=== PATIENT | female | born 1970 | race Caucasian/White ===

== ENCOUNTER 2021-01-28 14:21 | Outpatient (REF) | payer BC, SELFPAY ==
--- NOTE | ~2021-01-28 | MM_ITS ---
EXAMINATION: MM SCREENING DIGITAL BREAST TOMOSYNTHESIS, BILATERAL CLINICAL INFORMATION: Screening. Asymptomatic. The lifetime risk of breast cancer based on the Tyrer-Cuzick Model is 14%. COMPARISON: Mammography: 05/23/2019, 04/28/2018, 04/16/2017 TECHNIQUE: Digital breast tomosynthesis is performed in both the craniocaudal and mediolateral oblique views along with computer-aided detection (CAD). Synthesized 2D images are generated from the tomosynthesis. FINDINGS: There are scattered areas of fibroglandular density (ACR BI-RADS breast composition Category b). There are no significant masses, abnormal calcifications, or other abnormalities. Breast tissue composition borders on predominantly fatty. Background stromal markings are stable. No significant changes. MM/MM tomosynthesis screening BI IMPRESSION: No mammographic evidence of malignancy. ASSESSMENT: BI-RADS 1: Negative RECOMMENDATION: Routine annual mammography screening. This patient's information was entered into a reminder system with a target due date for their next mammogram.
== END 2021-01-28 14:22 | disposition home or self-care (01) ==
LOC: HO.MAMMO 14:21
PROVIDERS: PCP Internal Medicine; Visit Provider Internal Medicine
DX: Z12.31 Encounter for screening mammogram for malignant neoplasm of breast (principal)
CPT/HCPCS: 77063; 77067

== ENCOUNTER 2021-01-30 06:35 | Outpatient (REF) | payer BC, SELFPAY ==
[2021-01-30 11:07] LABS: MANUAL DIFF FLAG NO
[2021-01-30 11:22] LABS: Basophils Absolute Auto 0.1 X10*3/uL (0.0-0.2); Basophils Percent Auto 0.8 % (0-2); Eosinophils Absolute Auto 0.2 X10*3/uL (0.0-0.4); Eosinophils Percent Auto 3.1 % (0-4); Hemoglobin 14.6 g/dl (12.0-16.0); Imm Gran Abs Auto 0.02 X10*3/uL (0.00-0.03); Imm Gran Pct Auto 0.3 % (0.0-0.4); Lymphocytes Absolute Auto 2.2 X10*3/uL (1.2-4.9); Lymphocytes Percent Auto 34.3 % (20-40); Mean Corpuscular HGB Conc 31.1 g/dl (31.0-35.0); Mean Corpuscular Hemoglobin 27.9 pg (27.0-33.0); Mean Corpuscular Volume 89.7 fL (80-98); Monocytes Absolute Auto 0.5 X10*3/uL (0.1-1.2); Monocytes Percent Auto 7.1 % (2-11); Neutrophils Absolute Auto 3.6 X10*3/uL (2.0-8.3); Neutrophils Percent Auto 54.4 % (45-73); Platelet Count 269 X10*3/uL (160-400); Red Blood Count 5.24 X10*6/uL (4.20-5.50); White Blood Count 6.5 X10*3/uL (4.8-10.8)
[2021-01-30 11:28] LABS: Glucose Urine UA NEG (NEG); Leukocyte Esterase Urine NEG (NEG); Nitrite Urine NEG (NEG); Urine Blood NEG (NEG); Urine Ketones NEG (NEG); Urine Protein NEG (NEG-TRACE)
[2021-01-30 11:37] LABS: Appearance Urine CLEAR; Color Urine YELLOW
[2021-01-30 11:42] LABS: Estimated Average Glucose 111 mg/dL; Hemoglobin A1c % 5.5 %
[2021-01-30 11:55] LABS: Alanine Aminotransferase 13 U/L (0-31); Albumin Level 4.1 g/dL (3.5-5.0); Alkaline Phosphatase 117 U/L (39-117); Anion Gap 13 (12-20); Aspartate Amino Transferase 13 U/L (5-31); Bilirubin Total 0.6 mg/dL (0.0-1.0); Blood Urea Nitrogen 14 mg/dL (9-16); Calcium 8.5 mg/dL (8.4-10.2); Carbon Dioxide 31 mmol/L (22-29); Chloride 105 mmol/L (96-108); Cholesterol 186 mg/dL; Estimated Glomerular Filt Rate > 60; Glucose Random 96 mg/dL (60-115); HDL Cholesterol 54 mg/dL; LDL Cholesterol Calculated 116 mg/dl; Potassium 4.6 mmol/L (3.3-5.1); Sodium 144 mmol/L (135-145); Total Protein 6.4 g/dL (6.5-8.0); Triglycerides 80 mg/dL
[2021-01-30 11:57] LABS: RBC Urine 0 /HPF (0); Squamous Epithelial Cell Urine TRACE /LPF; WBC Urine 0 /HPF (0-4)
[2021-01-30 12:17] LABS: Thyroid Stimulating Hormone 1.77 uIU/mL (0.32-4.0); Vitamin D 25-OH Total 29.8 ng/mL (>30)
[2021-01-30 12:32] LABS: Vitamin B12 724 pg/mL (200-900)
== END 2021-01-30 06:36 | disposition home or self-care (01) ==
LOC: HO.HMGCLDS 06:35
PROVIDERS: PCP Internal Medicine; Visit Provider Internal Medicine
DX: E66.9 Obesity, unspecified (principal); E78.00 Pure hypercholesterolemia, unspecified; M19.90 Unspecified osteoarthritis, unspecified site
CPT/HCPCS: 36415; 80053; 80061; 81001; 82306; 82607; 82746; 83036; 84439; 84443; 85025

== ENCOUNTER 2022-01-29 14:47 | Outpatient (REF) | payer BC, SELFPAY ==
--- NOTE | ~2022-01-29 | MM_ITS ---
EXAMINATION: MM SCREENING DIGITAL BREAST TOMOSYNTHESIS, BILATERAL CLINICAL INFORMATION: Screening. Asymptomatic. The lifetime risk of breast cancer based on the Tyrer-Cuzick Model is 13%. COMPARISON: Mammography: 01/28/2021, 05/23/2019, 04/28/2018 TECHNIQUE: Digital breast tomosynthesis is performed in both the craniocaudal and mediolateral oblique views along with computer-aided detection (CAD). Synthesized 2D images are generated from the tomosynthesis. FINDINGS: The breasts are almost entirely fatty (ACR BI-RADS breast composition Category a). There are no significant masses, abnormal calcifications, or other abnormalities. Background stromal and fibroglandular densities are stable. Skin contours are smooth. No significant changes. MM/MM tomosynthesis screening BI IMPRESSION: No mammographic evidence of malignancy. ASSESSMENT: BI-RADS 1: Negative RECOMMENDATION: Routine annual mammography screening. This patient's information was entered into a reminder system with a target due date for their next mammogram.
== END 2022-01-29 14:48 | disposition home or self-care (01) ==
LOC: HO.MAMMO 14:47
PROVIDERS: PCP Internal Medicine; Visit Provider Internal Medicine
DX: Z12.31 Encounter for screening mammogram for malignant neoplasm of breast (principal)
CPT/HCPCS: 77063; 77067

== ENCOUNTER 2023-02-04 15:05 | Outpatient (REF) | payer BC, SELFPAY ==
--- NOTE | ~2023-02-04 | MM_ITS ---
EXAMINATION: MM SCREENING DIGITAL BREAST TOMOSYNTHESIS, BILATERAL CLINICAL INFORMATION: Screening. Asymptomatic. The lifetime risk of breast cancer based on the Tyrer-Cuzick Model is 9.4%. COMPARISON: Mammography: January 29, 2022 and studies dating back to April 10, 2016 TECHNIQUE: Digital breast tomosynthesis is performed in both the craniocaudal and mediolateral oblique views along with computer-aided detection (CAD). Synthesized 2D images are generated from the tomosynthesis. FINDINGS: The breasts are almost entirely fatty (ACR BI-RADS breast composition Category a). There are no significant masses, abnormal calcifications, or other abnormalities. MM/MM tomosynthesis screening BI IMPRESSION: No significant changes ASSESSMENT: BI-RADS 1: Negative RECOMMENDATION: Routine annual mammography screening. This patient's information was entered into a reminder system with a target due date for their next mammogram.
== END 2023-02-04 15:06 | disposition home or self-care (01) ==
LOC: HO.MAMMO 15:05
PROVIDERS: PCP Internal Medicine; Visit Provider Internal Medicine
DX: Z12.31 Encounter for screening mammogram for malignant neoplasm of breast (principal)
CPT/HCPCS: 77063; 77067

== ENCOUNTER 2023-11-16 14:51 | Outpatient (AMB) | payer BC, SELFPAY ==
[2023-11-16 14:52] VITALS: BP 120/76; PULSE 69; O2SAT 99; BMI 34.0
--- NOTE | 2023-11-16 14:52 | A.OFFPC_ITS ---
Vital Signs 11/16/23 14:52 Height 5 ft 2.8 in Weight 191 lb BMI 34.0 BP 120/76 Blood Pressure Location Lt brachial Position Sitting Pulse 69 Pulse Source Pulse Oximeter Pulse Oximetry (%) 99 Oxygen Delivery Method Room Air Intake Visit Reasons: Physical Exam Quartz Miner Required: No Allergies naproxen [NAPROXEN] Allergy (Intermediate, Verified 11/16/23 14:52) GI UPSET, upset stomach, vomiting Medication List - Last Reconciled 11/16/23 by Noemy Arellano MD bupropion HCl 150 mg PO DAILY calcium carbonate-vitamin D3 600 mg-5 mcg (200 unit) caps PO clonazepam (Klonopin) 1 mg PO DAILY clonidine HCl 0.1 mg PO DAILY docusate sodium 100 mg PO DAILY PRN meloxicam 15 mg PO DAILY Tobacco use date assessed: 11/16/23 Dental Screening Dental Screen Date: 11/16/23 Did you have a dental visit in the last 12 months?: Yes Did you have a dental problem in the last 6 months where you did not have access to dental care?: No Was dental information given to patient?: Patient has dentist HPI Physical Exam HPI Details 53-year-old obese female with generalize d anxiety disorder GERD last seen in December 2020 coming in for physical exam. Patient's mammogram is up-to-date colonoscopy is up-to-date 2018 10 years. Review of the notes October 2023 follows up with Rheumatology for osteoarthritis of the hand the knee. has a hx of migraine and wants amitriptylline. needs a letter - problem with perfume at work- walks QD 45 min. [facility] Medical History (Updated 11/16/23 @ 15:57 by Noemy Arellano MD) Vitamin D deficiency Migraine Fibromyalgia Anxiety Obesity (BMI 30-39.9) GERD (gastroesophageal reflux disease) Osteoarthritis Dysplasia of cervix, low grade (JONELLE 1) Surgical History (Updated 11/16/23 @ 15:40 by Noemy Arellano MD) History of prior ablation treatment History of herniated intervertebral disc History of ear surgery History of skin surgery H/O gastric bypass Family History (Updated 01/21/21 @ 13:42 by Cass Franklin) Father Myocardial infarction Mother No problems noted. Maternal Grandmother Breast cancer Paternal Grandfather Bone cancer Paternal Uncle Myocardial infarction Social History (Updated 11/16/23 @ 15:38 by Noemy Arellano MD) Alcohol intake: current Alcohol intake frequency: holidays/special occasions only Comment: once on holiday Patient Tobacco Use Status: Never used Tobacco Cognitive needs: No Hearing needs: No Vision needs: No Questionnaire PHQ-9 Over the last 2 weeks, how often have you been bothered by any of the following problems? 1. Little interest or pleasure in doing things: not at all 2. Feeling down, depressed, or hopeless: several days 3. Trouble falling or staying asleep, or sleeping too much: not at all 4. Feeling tired or having little energy: not at all 5. Poor appetite or overeating: not at all 6. Feeling bad about yourself - or that you are a failure or have let yourself or your family down: not at all 7. Trouble concentrating on things, such as reading the newspaper or watching television: not at all 8. Moving or speaking so slowly that other people could have noticed. Or the opposite - being so fidgety or restless that you have been moving around a lot more than usual: not at all 9. Thoughts that you would be better off or of hurting yourself in some way: not at all Total score: 1 Depression Screening Interpretation: Positive Depression Screening Follow-up: Existing condition and In treatment Depression Screening Done: Yes Source: Developed by Drs. Kenneth Singh, Diana Ward, Sam Kramer and colleagues, with an educational abi from [employer]. AUDIT C Alcohol Use Questionnaire (AUDIT-C) 1. How often do you have a drink containing alcohol?: Monthly or less 2. How many drinks containing alcohol do you have on a typical day when you are drinking?: 1 or 2 3. How often do you have six or more drinks on one occasion?: Never Total Score: 1 DIXON-7 AMB Questionnaire DIXON-7 Date DIXON - 7 assessed: 11/16/23 (pt taking RX) Feeling nervous, anxious, or on edge: 1 = Several days Not being able to stop or control worryin = Several days Worrying too much about different things: 0 = Not at all Trouble relaxin = Not at all Being so restless that it is hard to sit still: 0 = Not at all Becoming easily annoyed or irritable: 0 = Not at all Feeling afraid as if something awful might happen: 0 = Not at all Total DIXON-7 score (0-4 normal; 5-9 mild; 10-14 moderate; 15-21 severe): 2 Source: Developed by Drs. Kenneth Singh, Diana Ward, Sam Kramer and colleagues, with an educational abi from [employer]. Review of Systems Const Denies poor appetite and Denies weakness Eyes Denies no additional complaints ENT Reports Normal hearing present, Denies dizziness, Denies nasal congestion, Denies tinnitus and Denies sore throat Card Denies chest pain, Denies syncope, Denies rapid heart rate and Denies dyspnea Resp Denies cough and Denies dyspnea GI Denies change in stool character, Reports constipation, Denies diarrhea, Denies nausea and Denies vomiting Denies urinary frequency, Denies difficulty voiding and Denies dysuria Neuro Reports Normal hearing present, Denies confusion, Denies dizziness, Denies syncope and Denies weakness Psych Denies confusion Physical exam (Primary Care) Vital Signs: Last Vital Signs Pulse 69 11/16/23 14:52 BP 120/76 11/16/23 14:52 Pulse Ox 99 11/16/23 14:52 Oxygen Delivery Method Room Air 11/16/23 14:52 BMI result Body Mass Index 34.0 Tobacco/Smoking Status: Tobacco use Status Tobacco use date assessed 11/16/23 11/16/23 14:53 Patient Tobacco Use Status Never used Tobacco 11/16/23 14:53 PHQ-9: PHQ-9 Score PHQ-9: Total score 1 11/16/23 15:02 Depression Screening Interpretation: Positive Depression Screening Follow-up: Existing condition and In treatment Const General: No confusion Orientation/consciousness: No confusion HENMT Head: Yes normocephalic Ears: external ears normal and TM's normal bilaterally Face and sinus: Yes normal facial exam Mouth: moist mucous membranes Throat: Yes tonsils normal Eyes Conjunctivae: conjunctivae normal Pupils: Equal, round and reactive pupils present and Pupil accommodation reflex normal Direct Ophthalmoscopy: normal light reflex Neck Neck: No lymphadenopathy Thyroid: Thyroid normal Chest Chest palpation & inspection: normal inspection of the chest Resp Effort & Inspection: normal respiratory effort and no audible wheezes Auscultation: clear to auscultation bilaterally, no crackles, no wheezes and lung sounds not diminished Cardio Rate: regular rate Rhythm: regular rhythm Peripheral pulses: radial pulses present and dorsalis pedis present GI Palpation (GI): no masses Auscultation: normal bowel sounds and normoactive bowel sounds Rectal Exam - Female: deferred Skin General skin exam: no rashes or lesions noted Rashes: no rashes Neuro General: No confusion Cranial nerves: Yes Equal, round and reactive pupils present and Yes Normal hearing present Cognition (Neuro): normal cognition Gait exam (Neuro): Normal gait present Motor exam (neuro): 5/5 motor strength present throughout Deep tendon reflexes (DTR's): Right brachioradialis reflex intensity grade: 2+, Left brachioradialis reflex intensity grade: 2+, Right patellar reflex intensity grade: 2+ and Left patellar reflex intensity grade: 2+ Extrem General: No edema Assessment and Plan Assessment & Plan (1) Annual physical exam: Code(s): Z00.00 - Encounter for general adult medical examination without abnormal findings (2) Obesity (BMI 30-39.9): Code(s): E66.9 - Obesity, unspecified Plan: Diet and exercise noted weight loss (3) GERD (gastroesophageal reflux disease): Code(s): K21.9 - Gastro-esophageal reflux disease without esophagitis Qualifiers: Esophagitis presence: without esophagitis Qualified Code(s): K21.9 - Gastro-esophageal reflux disease without esophagitis Plan: Avoid the foods that causes that usually spicy foods, tomato products, juices, coffee, soda and foods that your sensitive to. After eating do not lie down, allow 3-4 hours before in lie down. And keep the head of bed above 30 degrees to avoid the acid from going up. (4) Anxiety: Comment: Carolina Gilbert, therapy QWeek Code(s): F41.9 - Anxiety disorder, unspecified Plan: Continue with counseling and therapy (5) Osteoarthritis: Comment: Dr. Arreguin knee and hands Code(s): M19.90 - Unspecified osteoarthritis, unspecified site Plan: Patient follows up with Rheumatology (6) Migraine: Code(s): G43.909 - Migraine, unspecified, not intractable, without status migrainosus (7) H/O gastric bypass: Comment: 12/16/2016 Dr. Murry Code(s): Z98.84 - Bariatric surgery status (8) Cervical cancer screening: Code(s): Z12.4 - Encounter for screening for malignant neoplasm of cervix Orders: Orders Complete Blood Count Auto Diff Today Z98.84 - Bariatric surgery status Vitamin D 25-OH Total Today Z98.84 - Bariatric surgery status Vitamin A Today Z98.84 - Bariatric surgery status Comprehensive Met. Panel Today Z. - Bariatric surgery status Free T4 (Free Thyroxine) Today Z. - Bariatric surgery status Thyroid Stimulating Hormone Today Z. - Bariatric surgery status Lipid Panel Today E78.00 - Pure hypercholesterolemia, unspecified, Z.84 - Bariatric surgery status Vitamin B12 and Folate Today Z. - Bariatric surgery status Referrals INSTRUCTIONAL MANAGER Referral Z12.4 - Encounter for screening for malignant neoplasm of cervix Medications: New amitriptyline 10 mg PO BEDTIME 90 tabs 1RF G43.909 - Migraine, unspecified, not intractable, without status migrainosus Coding Level of Care Code Est Pt Prev Care 40-64y(71383) Diagnoses Annual physical exam Z00.00 Obesity (BMI 30-39.9) E66.9 Gastroesophageal reflux disease without esophagitis K21.9 Esophagitis presence: without esophagitis Anxiety F41.9 Osteoarthritis M19.90 Migraine G43.909 H/O gastric bypass Z98.84 Cervical cancer screening Z12.4
== END 2023-11-16 16:00 | disposition home or self-care (01) ==
PROVIDERS: Visit Provider Internal Medicine
DX: Z00.00 Encounter for general adult medical examination without abnormal findings (principal); E66.9 Obesity, unspecified; K21.9 Gastro-esophageal reflux disease without esophagitis; Z68.34 Body mass index [BMI] 34.0-34.9, adult; F41.9 Anxiety disorder, unspecified; M19.90 Unspecified osteoarthritis, unspecified site; G43.909 Migraine, unspecified, not intractable, without status migrainosus; Z98.84 Bariatric surgery status
CPT/HCPCS: 99396

== ENCOUNTER 2023-11-25 10:13 | Outpatient (REF) | payer BC, SELFPAY ==
[2023-11-25 10:25] LABS: MANUAL DIFF FLAG NO
[2023-11-25 11:11] LABS: Basophils Absolute Auto 0.1 X10*3/uL (0.0-0.2); Basophils Percent Auto 1.2 % (0-2); Eosinophils Absolute Auto 0.1 X10*3/uL (0.0-0.4); Eosinophils Percent Auto 2.3 % (0-4); Hematocrit 45.7 % (37.0-47.0); Hemoglobin 14.4 g/dl (12.0-16.0); Imm Gran Abs Auto 0.02 X10*3/uL (0.00-0.03); Imm Gran Pct Auto 0.3 % (0.0-0.4); Lymphocytes Absolute Auto 2.2 X10*3/uL (1.2-4.9); Lymphocytes Percent Auto 37.1 % (20-40); Mean Corpuscular HGB Conc 31.5 g/dl (31.0-35.0); Mean Corpuscular Hemoglobin 28.4 pg (27.0-33.0); Mean Corpuscular Volume 90.1 fL (80.0-98.0); Mean Platelet Volume 11.4 fL (9.4-12.3); Monocytes Absolute Auto 0.4 X10*3/uL (0.1-1.2); Monocytes Percent Auto 5.8 % (2-11); Neutrophils Absolute Auto 3.2 x10*3/uL (2.0-8.3); Neutrophils Percent Auto 53.3 % (45-73); Platelet Count 244 X10*3/uL (160-400); Red Blood Count 5.07 X10*6/uL (4.20-5.50)
[2023-11-25 11:49] LABS: Alanine Aminotransferase 15 U/L (0-31); Albumin Level 3.8 g/dL (3.5-5.0); Alkaline Phosphatase 135 U/L (39-117); Anion Gap 10 (12-20); Aspartate Amino Transferase 19 U/L (5-31); Bilirubin Total 0.3 mg/dL (0.0-1.0); Blood Urea Nitrogen 16 mg/dL (9-16); Calcium 8.1 mg/dL (8.4-10.2); Carbon Dioxide 30 mmol/L (22-29); Chloride 108 mmol/L (96-108); Cholesterol 166 mg/dL (<200); Estimated Glomerular Filt Rate > 60; Glucose Random 90 mg/dL (60-115); HDL Cholesterol 50 mg/dL (>40); LDL Cholesterol Calculated 102 mg/dL (<100); Potassium 4.9 mmol/L (3.3-5.1); Sodium 143 mmol/L (135-145); Total Protein 6.3 g/dL (6.5-8.0); Triglycerides 73 mg/dL (<150)
[2023-11-25 12:09] LABS: Thyroid Stimulating Hormone 1.62 uIU/mL (0.32-4.0); Vitamin D 25-OH Total 35.4 ng/mL (>30)
[2023-11-25 12:18] LABS: Folate 9.8 ng/mL (> or = 4.0)
[2023-11-25 14:30] LABS: Vitamin B12 770 pg/mL (200-900)
[2023-11-29 12:14] LABS: Vitamin A 44 mcg/dL (38-98)
== END 2023-11-25 10:14 | disposition home or self-care (01) ==
LOC: HO.LAB 10:13
PROVIDERS: PCP Internal Medicine; Visit Provider Internal Medicine
DX: E78.00 Pure hypercholesterolemia, unspecified (principal); Z98.84 Bariatric surgery status
CPT/HCPCS: 36415; 80053; 80061; 82306; 82607; 82746; 84439; 84443; 84590; 85025

== ENCOUNTER 2024-02-10 15:07 | Outpatient (REF) | payer BC, SELFPAY ==
[2024-02-20 04:53] LABS: HPV mRNA E6/E7 rflx Not Detected (Not Detected)
== END 2024-02-10 15:08 | disposition home or self-care (01) ==
LOC: HO.LNP 15:07
PROVIDERS: PCP Internal Medicine; Visit Provider Obstetrics & Gynecology
DX: Z01.419 Encounter for gynecological examination (general) (routine) without abnormal findings (principal); Z11.51 Encounter for screening for human papillomavirus (HPV)
CPT/HCPCS: 87624; 88142

== ENCOUNTER 2024-02-10 15:07 | Outpatient (AMB) | payer BC, SELFPAY ==
[2024-02-10 15:41] VITALS: BP 118/74; BMI 35.6
--- NOTE | 2024-02-10 15:41 | MHC.OFFVIS ---
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 No complaints. Last Pap/HPV was in 2016 was negative Last Mammogram post BI-RADS 1 in 02/19, the patient is scheduled for next screening mammogram in a few weeks Last Colonoscopy was 5 years ago, the patient will be due in 5 more years [facility] Medical History Vitamin D deficiency Migraine Fibromyalgia Anxiety Obesity (BMI 30-39.9) GERD (gastroesophageal reflux disease) Osteoarthritis Dysplasia of cervix, low grade (JONELLE 1) Surgical History History of prior ablation treatment History of herniated intervertebral disc History of ear surgery History of skin surgery H/O gastric bypass Family History Father Myocardial infarction Mother No problems noted. Maternal Grandmother Breast cancer Paternal Grandfather Bone cancer Paternal Uncle Myocardial infarction Social History Household Members: Spouse Household Members Other:: daughter Housing: House Alcohol intake: current Alcohol intake frequency: holidays/special occasions only Comment: once on holiday Patient Tobacco Use Status: Never used Tobacco Current occupational status: employed Current occupation: [employer] Sexually active: Yes Sexual orientation: Straight/Heterosexual Gender identity: Female Cognitive needs: No Hearing needs: No Vision needs: No Female Reproductive History Menstrual Menopause type: natural Total pregnancies: 1 Full term: 1 Number of Living Children: 1 Date of last pap smear: 08/14/16 Date of Mammogram: 02/04/23 Review of Systems Const All systems reviewed & are unremarkable except as noted in HPI and below Card Reports as per HPI Resp Reports as per HPI GI Reports as per HPI and Reports no additional complaints Reports as per HPI Physical Exam Vital Signs: Last Vital Signs BP 118/74 02/10/24 15:41 BMI result Body Mass Index 35.6 Const General: cooperative, healthy appearing and comfortable Chest Chest palpation & inspection: normal inspection of the chest and normal palpation of entire chest wall Breast/axilla inspection: normal inspection of the breasts and normal inspection of the axillae Breast/axilla palpation: normal palpation of the breasts, normal palpation of the axillae and no axillary lymphadenopathy Resp Effort & Inspection: normal respiratory effort Auscultation: clear to auscultation bilaterally Percussion: percussion normal Cardio Palpation: normal PMI Rate: regular rate Rhythm: regular rhythm Heart sounds: no murmurs and no rubs Peripheral pulses: Peripheral pulses 2+ throughout GI Inspection: Yes normal to inspection Palpation (GI): Soft to palpation, nontender, no guarding, not rigid and No hepatosplenomegaly present Percussion: Yes normal to percussion Auscultation: normal bowel sounds Rectal Exam - Female: deferred General: Yes bladder normal to palpation External Female Exam: No lesion Speculum Exam - Vagina: normal appearance of the vagina, normal palpation, normal vaginal discharge and not erythematous Speculum Exam - Cervix: normal appearance of the cervix and normal palpation Bimanual exam- vagina & uterus: normal bimanual exam, normal palpation, uterine size normal, bladder normal to palpation, consistency normal and normal palpation Bimanual Exam- Adnexa, other: normal adnexae, no masses and no tenderness Assessment & Plan Assessment & Plan (1) Well woman exam: Code(s): Z01.419 - Encounter for gynecological examination (general) (routine) without abnormal findings Plan: Co testing done. Counseled the patient about the recommended dietary allowance of 1200 mg of Calcium & 600 IU of vitamin D. Mammogram is scheduled in the coming few weeks. The patient was instructed to perform monthly self-breast exams and schedule annual exam in a year. All questions answered and the patient verbalized understanding. Coding Level of Care Code New Pt Prev Care 40-64y(52763) Diagnoses Well woman exam Z01.419
== END 2024-02-10 16:01 | disposition home or self-care (01) ==
PROVIDERS: PCP Internal Medicine; Visit Provider Obstetrics & Gynecology
DX: Z01.419 Encounter for gynecological examination (general) (routine) without abnormal findings (principal)
CPT/HCPCS: 99386

== ENCOUNTER 2024-02-12 14:42 | Outpatient (REF) | payer BC, SELFPAY | END 2024-02-12 14:43 | disposition home or self-care (01) | LOC: HO.MAMMO 14:42 | PROVIDERS: PCP Internal Medicine; Visit Provider Internal Medicine | DX: Z12.31 Encounter for screening mammogram for malignant neoplasm of breast (principal) | CPT/HCPCS: 77063; 77067 ==

== ENCOUNTER → 2024-02-12 14:45 | Outpatient (BNV) | payer BC, SELFPAY | PROVIDERS: PCP Internal Medicine; Visit Provider Radiology Diagnostic Radiology | DX: Z12.31 Encounter for screening mammogram for malignant neoplasm of breast (principal) | CPT/HCPCS: 77063; 77067 ==

== ENCOUNTER 2024-02-17 09:45 | Outpatient (AMB) | payer BC, SELFPAY ==
[2024-02-17 09:48] VITALS: BP 136/70; PULSE 74; O2SAT 99; BMI 36.4
--- NOTE | 2024-02-17 09:48 | A.OFFPC_ITS ---
Vital Signs 02/17/24 09:48 Height 5 ft 2.5 in Weight 202 lb BMI 36.4 BP 136/70 Blood Pressure Location Lt brachial Position Sitting Pulse 74 Pulse Source Pulse Oximeter Pulse Oximetry (%) 99 Oxygen Delivery Method Room Air Intake Visit Reasons: follow up/ urgent care 01/08 for severe rash Intake Note: Patient is here to follow up. [facility]ven[facility] urgent care [place] 01-08-24 for a severe rash Editorial Writer Required: No Allergies naproxen [NAPROXEN] Allergy (Intermediate, Verified 02/17/24 09:49) GI UPSET, upset stomach, vomiting Tobacco use date assessed: 02/17/24 Dental Screening Dental Screen Date: 02/17/24 HPI follow up/ urgent care 01/08 for severe rash HPI Details [age] Year old obese female with a history of GERD generalized anxiety disorder migraine osteoarthritis coming in for follow-up last seen in October for physical exam mammogram is due colonoscopy is up-to-date.perirectal rash - gave steroids and nystatin and this has resolved the problem. Reminded about concerns on immune problems. [facility] Medical History Vitamin D deficiency Migraine Fibromyalgia Anxiety Obesity (BMI 30-39.9) GERD (gastroesophageal reflux disease) Osteoarthritis Dysplasia of cervix, low grade (JONELLE 1) Surgical History History of prior ablation treatment History of herniated intervertebral disc History of ear surgery History of skin surgery H/O gastric bypass Family History Father Myocardial infarction Mother No problems noted. Maternal Grandmother Breast cancer Paternal Grandfather Bone cancer Paternal Uncle Myocardial infarction Social History Household Members: Spouse Household Members Other:: daughter Housing: House Alcohol intake: current Alcohol intake frequency: holidays/special occasions only Comment: once on holiday Patient Tobacco Use Status: Never used Tobacco Current occupational status: employed Current occupation: [employer] Sexual orientation: Straight/Heterosexual Gender identity: Female Cognitive needs: No Hearing needs: No Vision needs: No Questionnaire AUDIT C Alcohol Use Questionnaire (AUDIT-C) 1. How often do you have a drink containing alcohol?: Monthly or less 2. How many drinks containing alcohol do you have on a typical day when you are drinking?: 1 or 2 3. How often do you have six or more drinks on one occasion?: Never Total Score: 1 DIXON-7 AMB Questionnaire DIXON-7 Date DIXON - 7 assessed: 11/16/23 (pt taking RX) Source: Developed by Drs. Kenneth Singh, Diana Ward, Sam Kramer and colleagues, with an educational abi from [employer]. Physical exam (Primary Care) Vital Signs: Last Vital Signs Pulse 74 02/17/24 09:48 BP 136/70 02/17/24 09:48 Pulse Ox 99 02/17/24 09:48 Oxygen Delivery Method Room Air 02/17/24 09:48 BMI result Body Mass Index 36.4 Tobacco/Smoking Status: Tobacco use Status Tobacco use date assessed 02/17/24 02/17/24 09:49 Patient Tobacco Use Status Never used Tobacco 02/17/24 09:49 Const General: alert; No acute distress Eyes Conjunctivae: conjunctivae normal Resp Auscultation: clear to auscultation bilaterally Cardio Rate: regular rate Rhythm: regular rhythm GI Inspection: Yes normal to inspection Skin Other: Rectal exam noted very minimal pinkish collar around the anal area but no definite redness. Extrem General: Yes normal to inspection and No edema Assessment and Plan Assessment & Plan (1) H/O gastric bypass: Comment: 12/16/2016 Dr. Murry Code(s): Z98.84 - Bariatric surgery status Plan: Concern that the weight is coming up (2) Obesity (BMI 30-39.9): Code(s): E66.9 - Obesity, unspecified Plan: Diet and exercise (3) GERD (gastroesophageal reflux disease): Code(s): K21.9 - Gastro-esophageal reflux disease without esophagitis Qualifiers: Esophagitis presence: without esophagitis Qualified Code(s): K21.9 - Gastro-esophageal reflux disease without esophagitis Plan: Avoid the foods that causes that usually spicy foods, tomato products, juices, coffee, soda and foods that your sensitive to. After eating do not lie down, allow 3-4 hours before in lie down. And keep the head of bed above 30 degrees to avoid the acid from going up. (4) Tinea corporis: Comment: Anal yeast infection December 2023 Code(s): B35.4 - Tinea corporis Plan: Resolved with short course of steroid and nystatin Orders: Orders Comprehensive Met. Panel Today B35.4 - Tinea corporis Hemoglobin A1c Today B35.4 - Tinea corporis Erythrocyte Sedimentation Rate Today B35.4 - Tinea corporis C Reactive Protein Today B35.4 - Tinea corporis Thyroid Stimulating Hormone Today B35.4 - Tinea corporis Complete Blood Count Auto Diff Today B35.4 - Tinea corporis Free T4 (Free Thyroxine) Today B35.4 - Tinea corporis Coding Level of Care Code Est Pt Level 4 (88276) Diagnoses H/O gastric bypass Z98.84 Obesity (BMI 30-39.9) E66.9 Gastroesophageal reflux disease without esophagitis K21.9 Esophagitis presence: without esophagitis Tinea corporis B35.4
== END 2024-02-17 10:29 | disposition home or self-care (01) ==
PROVIDERS: PCP Internal Medicine; Visit Provider Internal Medicine
DX: K21.9 Gastro-esophageal reflux disease without esophagitis (principal); Z98.84 Bariatric surgery status; Z68.36 Body mass index [BMI] 36.0-36.9, adult; E66.9 Obesity, unspecified; B35.4 Tinea corporis
CPT/HCPCS: 99214

== ENCOUNTER 2024-02-18 06:08 | Outpatient (REF) | payer BC, SELFPAY ==
[2024-02-18 11:00] LABS: MANUAL DIFF FLAG NO
[2024-02-18 11:20] LABS: Basophils Percent Auto 0.7 % (0-2); Eosinophils Absolute Auto 0.2 X10*3/uL (0.0-0.4); Hematocrit 43.4 % (37.0-47.0); Hemoglobin 13.8 g/dl (12.0-16.0); Imm Gran Abs Auto 0.02 X10*3/uL (0.00-0.03); Imm Gran Pct Auto 0.3 % (0.0-0.4); Lymphocytes Absolute Auto 2.3 X10*3/uL (1.2-4.9); Lymphocytes Percent Auto 38.4 % (20-40); Mean Corpuscular HGB Conc 31.8 g/dl (31.0-35.0); Mean Corpuscular Hemoglobin 28.2 pg (27.0-33.0); Mean Corpuscular Volume 88.6 fL (80.0-98.0); Mean Platelet Volume 10.9 fL (9.4-12.3); Monocytes Absolute Auto 0.4 X10*3/uL (0.1-1.2); Monocytes Percent Auto 7.3 % (2-11); Neutrophils Percent Auto 50.3 % (45-73); Platelet Count 276 X10*3/uL (160-400); Red Cell Distribution Width 13.4 % (11.0-16.0); White Blood Count 5.9 X10*3/uL (4.8-10.8)
[2024-02-18 11:33] LABS: Estimated Average Glucose 108 mg/dL; Hemoglobin A1c % 5.4 % (<6.0)
[2024-02-18 12:04] LABS: Alanine Aminotransferase 16 U/L (0-31); Albumin Level 3.8 g/dL (3.5-5.0); Alkaline Phosphatase 130 U/L (39-117); Anion Gap 11 (12-20); Aspartate Amino Transferase 18 U/L (5-31); Bilirubin Total 0.4 mg/dL (0.0-1.0); Blood Urea Nitrogen 19 mg/dL (9-16); C Reactive Protein 0.28 mg/dL (< or = 0.50); Carbon Dioxide 29 mmol/L (22-29); Chloride 106 mmol/L (96-108); Estimated Glomerular Filt Rate > 60; Free T4 (Free Thyroxine) 0.89 ng/dL (0.71-1.85); Glucose Random 95 mg/dL (60-115); Potassium 4.2 mmol/L (3.3-5.1); Sodium 142 mmol/L (135-145); Thyroid Stimulating Hormone 1.99 uIU/mL (0.32-4.0); Total Protein 6.4 g/dL (6.5-8.0)
[2024-02-18 13:21] LABS: Erythrocyte Sedimentation Rate 11 MM/HR (0-20)
== END 2024-02-18 06:09 | disposition home or self-care (01) ==
LOC: HO.HMGCLDS 06:08
PROVIDERS: PCP Internal Medicine; Visit Provider Internal Medicine
DX: B35.4 Tinea corporis (principal)
CPT/HCPCS: 36415; 80053; 83036; 84439; 84443; 85025; 85652; 86140

== ENCOUNTER 2024-11-18 14:43 | Outpatient (AMB) | payer BC, SELFPAY ==
--- NOTE | 2024-11-18 14:52 | MHC.PC.OV ---
Vital Signs 11/18/24 14:53 Height 5 ft 2.5 in Weight 208 lb BMI 37.4 BP 128/66 Blood Pressure Location Lt brachial Position Sitting Pulse 68 Pulse Source Pulse Oximeter Pulse Oximetry (%) 95 Oxygen Delivery Method Room Air Intake Visit Reasons: pe Intake Note: Patient is here today for a physical. Technical Engineer Required: No Sales Support Engineer: Not Required per policy Accompanied by: Self / Same As Patient Allergies naproxen [NAPROXEN] Allergy (Intermediate, Verified 11/18/24 14:53) GI UPSET, upset stomach, vomiting Medication List - Last Reconciled 11/18/24 by Noemy Arellano MD amitriptyline 10 mg PO BEDTIME bupropion HCl 150 mg PO DAILY calcium carbonate-vitamin D3 600 mg-5 mcg (200 unit) caps PO clonazepam (Klonopin) 1 mg PO DAILY clonidine HCl 0.1 mg PO DAILY clotrimazole 1% 1 appl topical BID 4 weeks docusate sodium 100 mg PO DAILY PRN meloxicam 15 mg PO DAILY Tobacco use date assessed: 11/18/24 Dental Screening Dental Screen Date: 02/17/24 HPI pe HPI Details The patient is a 54-year-old female presenting with fibromyalgia symptoms, insomnia, and requiring a review of her current medications. The patient reports experiencing generalized pain and discomfort attributed to fibromyalgia, with difficulty achieving restful sleep. The condition has been managed with low-dose amitriptyline primarily for sleep problems. The arthritis specialist advised increasing the amitriptyline dosage. She has also been prescribed meloxicam for arthritis pain management, which she takes with meals. The patient noted discomfort specifically in her knees and hands due to arthritis, as well as occasional Achilles tendon pain evident when walking. She experiences some dizziness upon standing quickly but denies nausea, vomiting, or fever. Past medical history includes a sensitivity to naproxen and the use of doxate sodium for constipation. There is family history of heart attacks and cancer. She has a history of alcohol consumption once a year and denies smoking or recreational drug use. - Tetanus shot up to date - Received flu vaccine today - Mammogram up to date - Eye examination done recently, monitoring for glaucoma - Blood work reviewed with no anemia; cholesterol, liver function, and blood count within normal limits - Alcohol consumption: rare, about once a year - Denies use of tobacco and recreational drugs - Insomnia affects sleeping habits - Currently engaging in activities and lifestyle behaviors to manage arthritis and fibromyalgia symptoms - Musculoskeletal: Reports pain in knees and hands (fibromyalgia and arthritis), occasional Achilles tendon pain - Neurological: Denies nausea, vomiting, fever - Otolaryngological: Denies issues except for chronic ear wax buildup in one ear - Labs: Previous blood work showed no anemia. Cholesterol, liver function, and blood count normal. [facility] Medical History Vitamin D deficiency Migraine Fibromyalgia Anxiety Obesity (BMI 30-39.9) GERD (gastroesophageal reflux disease) Osteoarthritis Dysplasia of cervix, low grade (JONELLE 1) Surgical History History of prior ablation treatment History of herniated intervertebral disc History of ear surgery History of skin surgery H/O gastric bypass Family History Father Myocardial infarction Mother No problems noted. Maternal Grandmother Breast cancer Paternal Grandfather Bone cancer Paternal Uncle Myocardial infarction Social History Household Members: Spouse Household Members Other:: daughter Housing: House Alcohol intake: current Alcohol intake frequency: holidays/special occasions only Comment: once on holiday Patient Tobacco Use Status: Never used Tobacco e-Cigarette/Vaping Use: Never Used Second Hand Smoke Exposure: No service: No Current occupational status: employed Current occupation: [employer] Sexual orientation: Straight/Heterosexual Gender identity: Female Cognitive needs: No Hearing needs: No Vision needs: No Questionnaire PHQ-9 Over the last 2 weeks, how often have you been bothered by any of the following problems? 1. Little interest or pleasure in doing things: not at all 2. Feeling down, depressed, or hopeless: not at all 3. Trouble falling or staying asleep, or sleeping too much: several days 4. Feeling tired or having little energy: several days 5. Poor appetite or overeating: not at all 6. Feeling bad about yourself - or that you are a failure or have let yourself or your family down: not at all 7. Trouble concentrating on things, such as reading the newspaper or watching television: not at all 8. Moving or speaking so slowly that other people could have noticed. Or the opposite - being so fidgety or restless that you have been moving around a lot more than usual: not at all 9. Thoughts that you would be better off or of hurting yourself in some way: not at all Total score: 2 Depression Screening Interpretation: Positive Depression Screening Done: Yes Source: Developed by Drs. Kenneth Singh, Diana Ward, Sam Kramer and colleagues, with an educational abi from [employer]. Thrive Questionnaire Date Thrive assessed: 11/18/24 I am a: Patient What is your living situation today?: I have a steady place to live Within the past 12 months, did the food you bought not last and you didn't have the money to get more?: Never true Within the past 12 months, did you worry whether your food would run out before you got money to buy more?: Never true Do you have trouble paying for medicines?: No Do you have trouble getting transportation to medical appointments?: No Do you have trouble paying your heating and electricity bill?: No Do you have trouble taking care of your child, family member or friend?: No Do you have trouble with day-to-day activities such as bathing, preparing meals, shopping, managing finances, etc.?: No Are you currently unemployed and looking for a job?: No Are you interested in more education?: No Please select the resources that you would like help with: None Currently or been in a relationship where the following occur: No concerns reported THRIVE Score: 0 AUDIT C Alcohol Use Questionnaire (AUDIT-C) 1. How often do you have a drink containing alcohol?: Never Total Score: 0 DIXON-7 AMB Questionnaire DIXON-7 Date DIXON - 7 assessed: 11/18/24 (pt taking RX) Feeling nervous, anxious, or on edge: 1 = Several days Not being able to stop or control worryin = Not at all Worrying too much about different things: 0 = Not at all Trouble relaxin = Several days Being so restless that it is hard to sit still: 1 = Several days Becoming easily annoyed or irritable: 1 = Several days Feeling afraid as if something awful might happen: 0 = Not at all Total DIXON-7 score (0-4 normal; 5-9 mild; 10-14 moderate; 15-21 severe): 4 Source: Developed by Drs. Kenneth Singh, Diana Ward, Sam Kramer and colleagues, with an educational abi from [employer]. Review of Systems Const Denies poor appetite and Denies weakness Eyes Denies no additional complaints ENT Reports Normal hearing present, Denies dizziness, Denies nasal congestion, Denies tinnitus and Denies sore throat Card Denies chest pain, Denies syncope, Denies rapid heart rate and Denies dyspnea Resp Denies cough and Denies dyspnea GI Denies change in stool character, Reports constipation, Denies diarrhea, Denies nausea and Denies vomiting Denies urinary frequency, Denies difficulty voiding and Denies dysuria Neuro Reports Normal hearing present, Denies confusion, Denies dizziness, Denies syncope and Denies weakness Psych Denies confusion Physical exam (Primary Care) Vital Signs: Last Vital Signs Pulse 68 11/18/24 14:53 BP 128/66 11/18/24 14:53 Pulse Ox 95 11/18/24 14:53 Oxygen Delivery Method Room Air 11/18/24 14:53 BMI result Body Mass Index 37.4 Tobacco/Smoking Status: Tobacco use Status Tobacco use date assessed 11/18/24 11/18/24 14:59 Patient Tobacco Use Status Never used Tobacco 11/18/24 14:59 e-Cigarette/Vaping Use Never Used 11/18/24 14:59 PHQ-9: PHQ-9 Score PHQ-9: Total score 2 11/18/24 15:25 Depression Screening Interpretation: Positive Thrive Assessment: Date of Thrive Assessment Date Thrive assessed 11/18/24 11/18/24 14:59 Currently or been in a relationship where the following occur: No concerns reported Const General: No confusion Orientation/consciousness: No confusion HENMT Head: Yes normocephalic Ears: external ears normal and TM's normal bilaterally Face and sinus: Yes normal facial exam Mouth: moist mucous membranes Throat: Yes tonsils normal Eyes Conjunctivae: conjunctivae normal Pupils: Equal, round and reactive pupils present and Pupil accommodation reflex normal Direct Ophthalmoscopy: normal light reflex Neck Neck: No lymphadenopathy Thyroid: Thyroid normal Chest Chest palpation & inspection: normal inspection of the chest Resp Effort & Inspection: normal respiratory effort and no audible wheezes Auscultation: clear to auscultation bilaterally, no crackles, no wheezes and lung sounds not diminished Cardio Rate: regular rate Rhythm: regular rhythm Peripheral pulses: radial pulses present and dorsalis pedis present GI Palpation (GI): no masses Auscultation: normal bowel sounds and normoactive bowel sounds Rectal Exam - Female: deferred Skin General skin exam: no rashes or lesions noted Rashes: no rashes Neuro General: No confusion Cranial nerves: Yes Equal, round and reactive pupils present and Yes Normal hearing present Cognition (Neuro): normal cognition Gait exam (Neuro): Normal gait present Motor exam (neuro): 5/5 motor strength present throughout Deep tendon reflexes (DTR's): Right brachioradialis reflex intensity grade: 2+, Left brachioradialis reflex intensity grade: 2+, Right patellar reflex intensity grade: 2+ and Left patellar reflex intensity grade: 2+ Extrem General: No edema Office Procedures Flu Questionnaire Does the patient have a severe egg allergy?: No Does the patient have severe life threatening allergies?: No Does the patient have a fever or illness today?: No Has the patient ever had Guillain-Hale Syndrome?: No Has the patient ever had any past reaction to a flu shot?: No Immunizations Fluarix Triv 2315-1700 (PF) 45 mcg (15 mcg x 3)/0.5 mL IM syringe Performing Provider: Noemy Arellano MD [facility] Administered by: OFELIA Lockhart on 11/18/24 15:24 Dose Route Admin Location Dispensed Lot Number Expiration Date [facility] [place] [employer] Technician 0.5 mL IM Left Deltoid 0.5 mL [id number] 11/18/24 47785-418-10 [employer] VIS Given Date VIS Provided VIS Publication Date 11/18/24 Single Vaccine 21 Eligibility Eligibility Date Funding Source Not [facility] Eligible 11/18/24 Private Coding Level of Care Code Est Pt Prev Care 40-64y(87813) Diagnoses Annual physical exam Z00.00 Obesity (BMI 30-39.9) E66.9 Gastroesophageal reflux disease without esophagitis K21.9 Esophagitis presence: without esophagitis Osteoarthritis M19.90 H/O gastric bypass Z98.84 Assessment & Plan Assessment & Plan (1) Annual physical exam: Code(s): Z00.00 - Encounter for general adult medical examination without abnormal findings Category: Medical (2) Obesity (BMI 30-39.9): Code(s): E66.9 - Obesity, unspecified Category: Medical (3) GERD (gastroesophageal reflux disease): Code(s): K21.9 - Gastro-esophageal reflux disease without esophagitis Category: Medical Qualifiers: Esophagitis presence: without esophagitis Qualified Code(s): K21.9 - Gastro-esophageal reflux disease without esophagitis (4) Osteoarthritis: Comment: Dr. Arreguin knee and hands Code(s): M19.90 - Unspecified osteoarthritis, unspecified site Category: Medical (5) H/O gastric bypass: Comment: 12/16/2016 Dr. Murry Code(s): Z98.84 - Bariatric surgery status Category: Surgical Plan - Increase amitriptyline dosage to 25 mg for fibromyalgia to improve sleep - Continue meloxicam for arthritis pain with dietary precautions - Evaluate and manage Achilles tendonitis with strengthening exercises or physical therapy if symptoms persist - Address ear wax impaction with [id number] irrigation; consider professional removal if necessary - Follow Saturnine protocols for constipation with diet and medication adjustments, as needed - Encourage maintaining hydration, balanced diet, and regular physical activity During today's visit, we reviewed the challenges of managing fibromyalgia and insomnia, and discussed adjusting the amitriptyline dosage to 25 mg to potentially enhance sleep quality and symptom control. The role of meloxicam in managing arthritis-related pain was reinforced, emphasizing the importance of consuming it with meals to minimize gastrointestinal side effects. Advancing Achilles tendonitis with strengthening exercises was considered, and appropriate methods for managing the persistent ear wax issue were communicated. Further consultations or changes in medication will be based on the patient's response over the next six months. - Increase amitriptyline to 25 mg as discussed and observe sleep and symptom improvement. - Continue taking meloxicam with meals to manage arthritis pain. - Use [id number] earwax removal solutions as directed, and consult if symptoms persist. - Stay hydrated, consume a balanced diet, and engage in light physical activities. - Follow up in six months or sooner if symptoms worsen or new concerns arise. Orders: Orders Influenza [id number] Immunization Today Z23 - Encounter for immunization Medications: Changed From amitriptyline 10 mg PO BEDTIME 90 tabs 1RF G43.909 - Migraine, unspecified, not intractable, without status migrainosus To amitriptyline 25 mg PO BEDTIME 90 tabs 1RF G43.909 - Migraine, unspecified, not intractable, without status migrainosus
[2024-11-18 14:53] VITALS: BP 128/66; PULSE 68; O2SAT 95; BMI 37.4
== END 2024-11-18 15:44 | disposition home or self-care (01) ==
PROVIDERS: PCP Internal Medicine; Visit Provider Internal Medicine
DX: Z00.00 Encounter for general adult medical examination without abnormal findings (principal); E66.9 Obesity, unspecified; Z68.37 Body mass index [BMI] 37.0-37.9, adult; K21.9 Gastro-esophageal reflux disease without esophagitis; M19.90 Unspecified osteoarthritis, unspecified site; Z98.84 Bariatric surgery status; Z23 Encounter for immunization

== ENCOUNTER → 2024-11-18 14:43 | Outpatient (BNVA) | payer BC, SELFPAY | PROVIDERS: PCP Internal Medicine; Visit Provider Internal Medicine | DX: Z00.00 Encounter for general adult medical examination without abnormal findings (principal); Z23 Encounter for immunization; E66.9 Obesity, unspecified; Z68.37 Body mass index [BMI] 37.0-37.9, adult; K21.9 Gastro-esophageal reflux disease without esophagitis; M19.90 Unspecified osteoarthritis, unspecified site; G43.909 Migraine, unspecified, not intractable, without status migrainosus; M79.7 Fibromyalgia; Z79.899 Other long term (current) drug therapy; Z98.84 Bariatric surgery status | CPT/HCPCS: 90471; 90656; 96127 ==

== ENCOUNTER 2025-02-22 15:10 | Outpatient (REF) | payer BC, SELFPAY | END 2025-02-22 15:11 | disposition home or self-care (01) | LOC: HO.MAMMO 15:10 | PROVIDERS: Visit Provider Internal Medicine | DX: Z12.31 Encounter for screening mammogram for malignant neoplasm of breast (principal) | CPT/HCPCS: 77063; 77067 ==

== ENCOUNTER → 2025-02-22 15:15 | Outpatient (BNV) | payer BC, SELFPAY | PROVIDERS: Visit Provider Internal Medicine | DX: Z12.31 Encounter for screening mammogram for malignant neoplasm of breast (principal) | CPT/HCPCS: 77063; 77067 ==

== ENCOUNTER 2025-04-26 14:47 | Outpatient (AMB) | payer BC, SELFPAY ==
--- NOTE | 2025-04-26 14:50 | A.OFFVIS_ITS ---
Vital Signs 04/26/25 14:51 Height 5 ft 2.5 in Weight 209 lb BMI 37.6 BP 112/82 Intake Visit Reasons: SPARE PERSON annual exam/DO NOT RS State Epidemiologist: State Epidemiologist Present (Korin Kwong) Accompanied by: Self / Same As Patient Allergies naproxen [NAPROXEN] Allergy (Intermediate, Verified 04/26/25 14:54) GI UPSET, upset stomach, vomiting HPI Comments Details: Presenting for annual exam. No complaints. Last Pap/HPV was negative in 02/20 Last Mammogram was BI-RADS 1 in 02/21 Last Colonoscopy was 6 years ago, the patient will be due for next screening colonoscopy in 4 years [facility] Medical History Vitamin D deficiency Migraine Fibromyalgia Anxiety Obesity (BMI 30-39.9) GERD (gastroesophageal reflux disease) Osteoarthritis Dysplasia of cervix, low grade (JONELLE 1) Surgical History History of prior ablation treatment History of herniated intervertebral disc History of ear surgery History of skin surgery H/O gastric bypass Family History Father Myocardial infarction Mother No problems noted. Maternal Grandmother Breast cancer Paternal Grandfather Bone cancer Paternal Uncle Myocardial infarction Social History Household Members: Spouse Household Members Other:: daughter Housing: House Alcohol intake: current Alcohol intake frequency: holidays/special occasions only Comment: once on holiday Patient Tobacco Use Status: Never used Tobacco e-Cigarette/Vaping Use: Never Used Second Hand Smoke Exposure: No service: No Current occupational status: employed Current occupation: [employer] Sexual orientation: Straight/Heterosexual Gender identity: Female Cognitive needs: No Hearing needs: No Vision needs: No Female Reproductive History Menstrual Total pregnancies: 1 Full term: 1 Number of Living Children: 1 Date of last pap smear: 02/12/24 Date of Mammogram: 02/22/25 Review of Systems Const All systems reviewed & are unremarkable except as noted in HPI and below Card Reports as per HPI Resp Reports as per HPI GI Reports as per HPI and Reports no additional complaints Reports as per HPI Physical Exam Vital Signs: Last Vital Signs BP 112/82 04/26/25 14:51 BMI result Body Mass Index 37.6 Const General: cooperative, healthy appearing and comfortable Chest Chest palpation & inspection: normal inspection of the chest and normal palpation of entire chest wall Breast/axilla inspection: normal inspection of the breasts and normal inspection of the axillae Breast/axilla palpation: normal palpation of the breasts, normal palpation of the axillae and no axillary lymphadenopathy Resp Effort & Inspection: normal respiratory effort Auscultation: clear to auscultation bilaterally Percussion: percussion normal Cardio Palpation: normal PMI Rate: regular rate Rhythm: regular rhythm Heart sounds: no murmurs and no rubs Peripheral pulses: Peripheral pulses 2+ throughout GI Inspection: Yes normal to inspection Palpation (GI): Soft to palpation, nontender, no guarding, not rigid and No hepatosplenomegaly present Percussion: Yes normal to percussion Auscultation: normal bowel sounds Rectal Exam - Female: deferred General: Yes bladder normal to palpation External Female Exam: No lesion Speculum Exam - Vagina: normal appearance of the vagina, normal palpation, normal vaginal discharge and not erythematous Speculum Exam - Cervix: normal appearance of the cervix and normal palpation Bimanual exam- vagina & uterus: normal bimanual exam, normal palpation, uterine size normal, bladder normal to palpation, consistency normal and normal palpation Bimanual Exam- Adnexa, other: normal adnexae, no masses and no tenderness Assessment & Plan Assessment & Plan (1) Well woman exam: Code(s): Z01.419 - Encounter for gynecological examination (general) (routine) without abnormal findings Category: Medical Plan: Co testing not indicated this year. Counseled the patient about the recommended dietary allowance of 1200 mg of Calcium & 600 IU of vitamin D. Instructions given to patient to schedule next screen Mammogram in 02/22. The patient was instructed to perform monthly self-breast exams and schedule annual exam in a year. All questions answered and the patient verbalized understanding. Coding Level of Care Code Est Pt Prev Care 40-64y(48458) Diagnoses Well woman exam Z01.419
[2025-04-26 14:51] VITALS: BP 112/82; BMI 37.6
== END 2025-04-26 15:24 | disposition home or self-care (01) ==
LOC: HO.HWS 14:48
PROVIDERS: Visit Provider Obstetrics & Gynecology
DX: Z01.419 Encounter for gynecological examination (general) (routine) without abnormal findings (principal)
CPT/HCPCS: 99396; 99459

== ENCOUNTER → 2025-04-26 14:47 | Outpatient (BNVA) | payer BC, SELFPAY | PROVIDERS: Visit Provider Obstetrics & Gynecology | DX: Z01.419 Encounter for gynecological examination (general) (routine) without abnormal findings (principal) ==

== ENCOUNTER 2025-05-19 14:02 | Outpatient (AMB) | payer BC, SELFPAY ==
[2025-05-19 14:05] VITALS: BP 122/84; PULSE 71; O2SAT 97; BMI 38.0
--- NOTE | 2025-05-19 14:05 | MHC.PC.OV ---
Vital Signs 05/19/25 14:05 Height 5 ft 2.5 in Weight 211 lb 2 oz BMI 38.0 BP 122/84 Blood Pressure Location Lt brachial Position Sitting Pulse 71 Pulse Source Pulse Oximeter Pulse Oximetry (%) 97 Oxygen Delivery Method Room Air Intake Visit Reasons: OA Bioassayist Required: No Accompanied by: Self / Same As Patient Allergies naproxen (NAPROXEN) Allergy (Intermediate, Verified 05/19/25 14:05) GI UPSET, upset stomach, vomiting Medication List - Last Reconciled 05/19/25 by Noemy Arellano MD amitriptyline 25 mg PO BEDTIME bupropion HCl 150 mg PO DAILY calcium carbonate-vitamin D3 600 mg-5 mcg (200 unit) caps PO clonidine HCl 0.1 mg PO DAILY docusate sodium 100 mg PO DAILY PRN meloxicam 15 mg PO DAILY Tobacco use date assessed: 05/19/25 Dental Screening Dental Screen Date: 05/19/25 Did you have a dental visit in the last 12 months?: Yes Did you have a dental problem in the last 6 months where you did not have access to dental care?: No Was dental information given to patient?: Patient has dentist [facility] Medical History Vitamin D deficiency Migraine Fibromyalgia Anxiety Obesity (BMI 30-39.9) GERD (gastroesophageal reflux disease) Osteoarthritis Dysplasia of cervix, low grade (JONELLE 1) Surgical History History of prior ablation treatment History of herniated intervertebral disc History of ear surgery History of skin surgery H/O gastric bypass Family History Father Myocardial infarction Mother No problems noted. 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 1. Little interest or pleasure in doing things: not at all 2. Feeling down, depressed, or hopeless: not at all 3. Trouble falling or staying asleep, or sleeping too much: more than half the days 4. Feeling tired or having little energy: more than half the days 5. Poor appetite or overeating: not at all 6. Feeling bad about yourself - or that you are a failure or have let yourself or your family down: not at all 7. Trouble concentrating on things, such as reading the newspaper or watching television: not at all 8. Moving or speaking so slowly that other people could have noticed. Or the opposite - being so fidgety or restless that you have been moving around a lot more than usual: not at all 9. Thoughts that you would be better off or of hurting yourself in some way: not at all Total score: 4 Source: Developed by Drs. Kenneth Singh, Diana Ward, Sam Kramer and colleagues, with an educational abi from [employer]. Thrive Questionnaire Date Thrive assessed: 05/19/25 I am a: Patient What is your living situation today?: I have a steady place to live Within the past 12 months, did the food you bought not last and you didn't have the money to get more?: Never true Within the past 12 months, did you worry whether your food would run out before you got money to buy more?: Never true Do you have trouble paying for medicines?: No Do you have trouble getting transportation to medical appointments?: No Do you have trouble paying your heating and electricity bill?: No Do you have trouble taking care of your child, family member or friend?: No Do you have trouble with day-to-day activities such as bathing, preparing meals, shopping, managing finances, etc.?: No Are you currently unemployed and looking for a job?: No Are you interested in more education?: No Please select the resources that you would like help with: None Currently or been in a relationship where the following occur: No concerns reported THRIVE Score: 0 AUDIT C Alcohol Use Questionnaire (AUDIT-C) 1. How often do you have a drink containing alcohol?: Never 3. How often do you have six or more drinks on one occasion?: Never Total Score: 0 DIXON-7 AMB Questionnaire DIXON-7 Date DIXON - 7 assessed: 05/19/25 (pt taking RX) Feeling nervous, anxious, or on edge: 1 = Several days Not being able to stop or control worryin = Several days Worrying too much about different things: 1 = Several days Trouble relaxin = Nearly every day Being so restless that it is hard to sit still: 1 = Several days Becoming easily annoyed or irritable: 2 = More than half the days Feeling afraid as if something awful might happen: 0 = Not at all Total DIXON-7 score (0-4 normal; 5-9 mild; 10-14 moderate; 15-21 severe): 9 Source: Developed by Drs. Kenneth Singh, Diana Ward, Sam Kramer and colleagues, with an educational abi from [employer]. Physical exam (Primary Care) Vital Signs: Last Vital Signs Pulse 71 05/19/25 14:05 BP 122/84 05/19/25 14:05 Pulse Ox 97 05/19/25 14:05 Oxygen Delivery Method Room Air 05/19/25 14:05 BMI result Body Mass Index 38.0 Tobacco/Smoking Status: Tobacco use Status Tobacco use date assessed 05/19/25 05/19/25 14:11 Patient Tobacco Use Status Never used Tobacco 05/19/25 14:11 e-Cigarette/Vaping Use Never Used 05/19/25 14:11 PHQ-9: PHQ-9 Score PHQ-9: Total score 4 05/19/25 14:11 Thrive Assessment: Date of Thrive Assessment Date Thrive assessed 05/19/25 05/19/25 14:11 Currently or been in a relationship where the following occur: No concerns reported Const General: alert; No acute distress Eyes Conjunctivae: conjunctivae normal Resp Auscultation: clear to auscultation bilaterally Cardio Rate: regular rate Rhythm: regular rhythm GI Inspection: Yes normal to inspection Extrem General: Yes normal to inspection and No edema Coding Level of Care Code Est Pt Level 4 (56896) Complex EM visit Add On G2211 Diagnoses Osteoarthritis M19.90 Gastroesophageal reflux disease without esophagitis K21.9 Esophagitis presence: without esophagitis H/O gastric bypass Z98.84 Obesity (BMI 30-39.9) E66.9 Generalized anxiety disorder F41.1 Assessment & Plan Assessment & Plan (1) Osteoarthritis: Comment: Dr. Arreguin knee and hands Code(s): M19.90 - Unspecified osteoarthritis, unspecified site Category: Medical Plan: Patient being followed up by Rheumatology pruritus presently on meloxicam for pain (2) GERD (gastroesophageal reflux disease): Code(s): K21.9 - Gastro-esophageal reflux disease without esophagitis Category: Medical Qualifiers: Esophagitis presence: without esophagitis Qualified Code(s): K21.9 - Gastro-esophageal reflux disease without esophagitis Plan: Avoid the foods that causes that usually spicy foods, tomato products, juices, coffee, soda and foods that your sensitive to. After eating do not lie down, allow 3-4 hours before in lie down. And keep the head of bed above 30 degrees to avoid the acid from going up. (3) H/O gastric bypass: Comment: 12/16/2016 Dr. Murry Code(s): Z98.84 - Bariatric surgery status Category: Surgical Plan: Continue to follow-up with bariatric (4) Obesity (BMI 30-39.9): Code(s): E66.9 - Obesity, unspecified Category: Medical Plan: Diet and exercise (5) Generalized anxiety disorder: Comment: seeing Psychiatry counselling monthly Code(s): F41.1 - Generalized anxiety disorder Category: Medical Plan: Continue with counseling and therapy Plan History of Present Illness The patient is a 55-year-old female presenting for a follow-up visit. The patient has a history of obesity and underwent gastric bypass surgery in November 2016. She has been managing her weight post-surgery with diet and exercise, and continues to follow up with bariatrics. The patient has a history of Gastroesophageal Reflux Disease (GERD) and is following a reflux management plan. She also has a history of Generalized Anxiety Disorder and migraines, which are being managed as part of her ongoing care. The patient follows up with rheumatology for osteoarthritis of the knee and hands, and is currently on meloxicam for pain management. Her last blood work was conducted in January 2024, showing normal blood counts. In terms of preventative care, her last colonoscopy was in 2018 with a recommendation for a repeat in 10 years, and her mammogram is up to date as of January 2025. Health Maintenance - Colonoscopy last done in 2017, advised every 10 years - Mammogram up to date as of January 2025 Social History Review of Systems Physical Exam Results - Labs: Blood work in January 2024 showed normal blood counts Plan The patient will continue to follow up with bariatrics to manage her weight post-gastric bypass surgery. She is advised to maintain her diet and exercise regimen to support weight management. For GERD, the patient will continue with her current reflux management plan. The patient will continue her follow-up with rheumatology for osteoarthritis management and remain on meloxicam for pain control. Preventative care measures include scheduling her next colonoscopy as advised and ensuring her mammograms remain up to date. Patient was informed and verbally consented to the use of an ambient scribe for clinic note documentation during this visit. Discussion Notes Patient Instructions Orders: Orders Comprehensive Met. Panel Today K21.9 - Gastro-esophageal reflux disease without esophagitis Free T4 (Free Thyroxine) Today K21.9 - Gastro-esophageal reflux disease without esophagitis Vitamin B12 and Folate Today K21.9 - Gastro-esophageal reflux disease without esophagitis Vitamin D 25-OH Total Today K21.9 - Gastro-esophageal reflux disease without esophagitis Complete Blood Count Auto Diff Today K21.9 - Gastro-esophageal reflux disease without esophagitis Thyroid Stimulating Hormone Today K21.9 - Gastro-esophageal reflux disease without esophagitis Lipid Panel Today E78.00 - Pure hypercholesterolemia, unspecified, K21.9 - Gastro-esophageal reflux disease without esophagitis
== END 2025-05-19 15:22 | disposition home or self-care (01) ==
LOC: HO.HMCH 14:03
PROVIDERS: PCP Internal Medicine; Visit Provider Internal Medicine
DX: M17.0 Bilateral primary osteoarthritis of knee (principal); K21.9 Gastro-esophageal reflux disease without esophagitis; Z68.38 Body mass index [BMI] 38.0-38.9, adult; E66.9 Obesity, unspecified; Z98.84 Bariatric surgery status; F41.1 Generalized anxiety disorder; M19.041 Primary osteoarthritis, right hand; M19.042 Primary osteoarthritis, left hand

== ENCOUNTER → 2025-05-19 14:02 | Outpatient (BNVA) | payer BC, SELFPAY | PROVIDERS: PCP Internal Medicine; Visit Provider Internal Medicine ==

== ENCOUNTER 2025-05-27 09:11 | Outpatient (REF) | payer BC, SELFPAY ==
[2025-05-27 09:31] LABS: MANUAL DIFF FLAG NO
[2025-05-27 10:23] LABS: Basophils Absolute Auto 0.1 X10*3/uL (0.0-0.2); Eosinophils Absolute Auto 0.2 X10*3/uL (0.0-0.4); Eosinophils Percent Auto 2.5 % (0-4); Hematocrit 44.4 % (37.0-47.0); Hemoglobin 14.2 g/dl (12.0-16.0); Imm Gran Abs Auto 0.02 X10*3/uL (0.00-0.03); Imm Gran Pct Auto 0.3 % (0.0-0.4); Lymphocytes Absolute Auto 2.2 X10*3/uL (1.2-4.9); Lymphocytes Percent Auto 34.7 % (20-40); Mean Corpuscular Volume 87.4 fL (80.0-98.0); Mean Platelet Volume 10.7 fL (9.4-12.3); Monocytes Absolute Auto 0.5 X10*3/uL (0.1-1.2); Monocytes Percent Auto 7.1 % (2-11); Neutrophils Absolute Auto 3.4 x10*3/uL (2.0-8.3); Neutrophils Percent Auto 54.4 % (45-73); Platelet Count 282 X10*3/uL (160-400); Red Blood Count 5.08 X10*6/uL (4.20-5.50); Red Cell Distribution Width 13.1 % (11.0-16.0); White Blood Count 6.3 X10*3/uL (4.8-10.8)
[2025-05-27 11:14] LABS: Alanine Aminotransferase 17 U/L (0-31); Alkaline Phosphatase 156 U/L (39-117); Anion Gap 12 (12-20); Aspartate Amino Transferase 22 U/L (5-31); Bilirubin Total 0.4 mg/dL (0.0-1.0); Blood Urea Nitrogen 19 mg/dL (9-16); Calcium 8.7 mg/dL (8.4-10.2); Carbon Dioxide 26 mmol/L (22-29); Chloride 109 mmol/L (96-108); Cholesterol 174 mg/dL (<200); Estimated Glomerular Filt Rate > 60; Glucose Random 91 mg/dL (60-115); HDL Cholesterol 49 mg/dL (>40); LDL Cholesterol Calculated 108 mg/dL (<100); Potassium 4.5 mmol/L (3.3-5.1); Sodium 142 mmol/L (135-145); Total Protein 6.3 g/dL (6.5-8.0); Triglycerides 87 mg/dL (<150)
[2025-05-27 11:18] LABS: Free T4 (Free Thyroxine) 0.98 ng/dL (0.71-1.85); Vitamin D 25-OH Total 37.6 ng/mL (>30)
[2025-05-27 11:36] LABS: Folate 13.6 ng/mL (> or = 4.0); Vitamin B12 829 pg/mL (200-900)
== END 2025-05-27 09:12 | disposition home or self-care (01) ==
LOC: HO.LAB 09:11
PROVIDERS: PCP Internal Medicine; Visit Provider Internal Medicine
DX: K21.9 Gastro-esophageal reflux disease without esophagitis (principal); E78.00 Pure hypercholesterolemia, unspecified
CPT/HCPCS: 36415; 80053; 80061; 82306; 82607; 82746; 84439; 84443; 85025

== ENCOUNTER 2025-11-27 13:40 | Outpatient (AMB) | payer BC, SELFPAY ==
[2025-11-27 13:46] VITALS: BP 124/78; PULSE 78; O2SAT 98; BMI 38.3
--- NOTE | 2025-11-27 13:46 | MHC.PC.OV ---
Vital Signs 11/27/25 13:46 Height 5 ft 2.5 in Weight 213 lb BMI 38.3 BP 124/78 Blood Pressure Location Lt brachial Position Sitting Pulse 78 Pulse Source Pulse Oximeter Pulse Oximetry (%) 98 Oxygen Delivery Method Room Air Intake Visit Reasons: Annual Exam Allergies naproxen (NAPROXEN) Allergy (Intermediate, Verified 11/27/25 13:46) GI UPSET, upset stomach, vomiting Medication List - Last Reconciled 11/27/25 by Noemy Arellano MD amitriptyline 25 mg PO BEDTIME bupropion HCl 150 mg PO DAILY calcium carbonate-vitamin D3 600 mg-5 mcg (200 unit) caps PO clonidine HCl 0.1 mg PO DAILY PRN docusate sodium 100 mg PO DAILY PRN meloxicam 15 mg PO DAILY multivitamin 1 tab PO DAILY Tobacco use date assessed: 05/19/25 Dental Screening Dental Screen Date: 05/19/25 HPI HPI Comments History of Present Illness Details History of Present Illness The patient is a 55-year-old female who presents for an annual physical exam. Her past medical history is significant for obesity, status post gastric bypass surgery in November 2016, gastroesophageal reflux disease (GERD), and generalized anxiety disorder. She has no new diagnoses or surgeries since her last visit. Her current medications include amitriptyline 25 mg at bedtime, Wellbutrin 75 mg (two tablets once daily), calcium with vitamin D, docusate for constipation, and meloxicam for pain, which she takes with food. She also takes clonidine 0.1 mg as needed for anxiety and a daily multivitamin. She has an allergy to naproxen. Her psychiatry provider is retiring, and she requests that her Wellbutrin be managed here. Family history is notable for a heart attack in her father and uncle, breast cancer in her grandmother, and bone cancer in her grandfather. Her last blood work in April was remarkable for a slightly elevated alkaline phosphatase, but otherwise showed a normal CBC, electrolytes, renal function, blood sugar, liver function, LDL of 108, triglycerides of 7, and normal levels of B12, vitamin D, folic acid, and thyroid hormone. Her last colonoscopy was in 2017, and her last mammogram was in January 2025. She had an eye exam in July and is being monitored for suspicion of glaucoma. Health Maintenance - Colonoscopy: Last performed in 2017; patient is up to date. - Mammogram: Patient is up to date, with the last one recorded as January 2025. - Vaccinations: Patient reports receiving the flu shot, pneumonia shot, and shingles shot. - Tetanus: Up to date; will be due for renewal next year. - Eye Exam: Last exam was on August 05; she is monitored for suspicion of glaucoma. - Lab Monitoring: Last blood work was in April. She was advised to have repeat labs in six months. - Lifestyle: Counseled on the importance of hydration, a healthy diet, and staying active. Social History - Alcohol Use: Reports rare alcohol consumption, such as on holidays. - Tobacco Use: Denies ever smoking. - Illicit Drug Use: Denies any use of recreational drugs. - Exercise: Encouraged to remain physically active. Results - Labs from April: Blood count, electrolytes, renal function, blood sugar, liver function, B12, vitamin D, folic acid, and thyroid studies were all within normal limits. - Lipids from April: LDL was 108 mg/dL and triglycerides were 7 mg/dL. - Labs from April: Alkaline phosphatase was noted to be slightly elevated. [facility] Medical History Vitamin D deficiency Migraine Fibromyalgia Anxiety Obesity (BMI 30-39.9) GERD (gastroesophageal reflux disease) Osteoarthritis Dysplasia of cervix, low grade (JONELLE 1) Surgical History History of prior ablation treatment History of herniated intervertebral disc History of ear surgery History of skin surgery H/O gastric bypass Family History (Updated 11/27/25 @ 13:47 by Liz Roman [facility]) Father Myocardial infarction Mother No problems noted. Maternal Grandmother Breast cancer Paternal Grandfather Bone cancer Paternal Uncle Myocardial infarction Social History Household Members: Spouse Household Members Other:: daughter Housing: House Alcohol intake: current Alcohol intake frequency: holidays/special occasions only Comment: once on holiday Patient Tobacco Use Status: Never used Tobacco Tobacco use type: Cigarette e-Cigarette/Vaping Use: Never Used Second Hand Smoke Exposure: No service: No Current occupational status: employed Current occupation: [employer] Sexual orientation: Straight/Heterosexual Gender identity: Female Cognitive needs: No Hearing needs: No Vision needs: No Questionnaire PHQ-9 Over the last 2 weeks, how often have you been bothered by any of the following problems? 1. Little interest or pleasure in doing things: not at all 2. Feeling down, depressed, or hopeless: not at all 3. Trouble falling or staying asleep, or sleeping too much: more than half the days 4. Feeling tired or having little energy: more than half the days 5. Poor appetite or overeating: not at all 6. Feeling bad about yourself - or that you are a failure or have let yourself or your family down: not at all 7. Trouble concentrating on things, such as reading the newspaper or watching television: not at all 8. Moving or speaking so slowly that other people could have noticed. Or the opposite - being so fidgety or restless that you have been moving around a lot more than usual: not at all 9. Thoughts that you would be better off or of hurting yourself in some way: not at all Total score: 4 Depression Screening Interpretation: Positive Depression Screening Done: Yes Source: Developed by Drs. Kenneth Singh, Diana Ward, Sam Kramer and colleagues, with an educational abi from [employer]. Thrive Questionnaire Date Thrive assessed: 05/12/25 I am a: Patient What is your living situation today?: I have a steady place to live Within the past 12 months, did the food you bought not last and you didn't have the money to get more?: Never true Within the past 12 months, did you worry whether your food would run out before you got money to buy more?: Never true Do you have trouble paying for medicines?: No Do you have trouble getting transportation to medical appointments?: No Do you have trouble paying your heating and electricity bill?: No Do you have trouble taking care of your child, family member or friend?: No Do you have trouble with day-to-day activities such as bathing, preparing meals, shopping, managing finances, etc.?: No Are you currently unemployed and looking for a job?: No Are you interested in more education?: No Currently or been in a relationship where the following occur: No concerns reported THRIVE Score: 0 DIXON-7 AMB Questionnaire DIXON-7 Date DIXON - 7 assessed: 05/19/25 (pt taking RX) Source: Developed by Drs. Kenneth Singh, Diana Ward, Sam Kramer and colleagues, with an educational abi from [employer]. Review of Systems Narrative Review of Systems - Constitutional: Denies fever. - Neurological: Reports occasional dizziness if she stands up too quickly. Denies syncope. - HEENT: Reports good hearing and no complaints about it. Denies dysphagia or coughing while eating. Reports one ear feels blocked. - Cardiovascular: Denies chest pain, heaviness, or discomfort. - Respiratory: Denies waking up short of breath. - Gastrointestinal: Denies nausea, vomiting, or heartburn. States no problems with bowel movements. Denies blood in stools. - Genitourinary: Reports waking up once at night to urinate. Denies other urinary problems. Const Denies poor appetite and Denies weakness Eyes Denies no additional complaints ENT Reports Normal hearing present, Denies dizziness, Denies nasal congestion, Denies tinnitus and Denies sore throat Card Denies chest pain, Denies syncope, Denies rapid heart rate and Denies dyspnea Resp Denies cough and Denies dyspnea GI Denies change in stool character, Reports constipation, Denies diarrhea, Denies nausea and Denies vomiting Denies urinary frequency, Denies difficulty voiding and Denies dysuria Neuro Reports Normal hearing present, Denies confusion, Denies dizziness, Denies syncope and Denies weakness Psych Denies confusion Physical exam (Primary Care) Vital Signs: Last Vital Signs Pulse 78 11/27/25 13:46 BP 124/78 11/27/25 13:46 Pulse Ox 98 11/27/25 13:46 Oxygen Delivery Method Room Air 11/27/25 13:46 BMI result Body Mass Index 38.3 Tobacco/Smoking Status: Tobacco use Status Tobacco use date assessed 05/19/25 11/27/25 13:51 Patient Tobacco Use Status Never used Tobacco 11/27/25 13:51 Tobacco use type Cigarette 11/27/25 13:51 e-Cigarette/Vaping Use Never Used 11/27/25 13:51 PHQ-9: PHQ-9 Score PHQ-9: Total score 4 11/27/25 13:54 Depression Screening Interpretation: Positive Thrive Assessment: Date of Thrive Assessment Date Thrive assessed 05/12/25 11/27/25 13:51 Currently or been in a relationship where the following occur: No concerns reported Narrative Physical Exam General: Cooperative, healthy appearing, comfortable, no acute distress and well developed Orientation: Patient oriented x3 Limitations: No limitations Head: Normal to inspection Ears: Hearing grossly normal bilaterally, although the right ear is always blocked Nose: Normal external nose present Face and sinus: Normal facial exam Eyes: Appearance normal, both eyes and all related structures; patient wears glasses and is being monitored for suspicion of glaucoma Neck: Normal visual inspection and Yes full ROM Respiratory: Normal respiratory effort and able to speak in complete sentences. Clear to auscultation bilaterally Cardiovascular: Regular rate and rhythm. Normal S1 and S2 GI: Normal to inspection. Soft to palpation and nontender Skin: No rashes or lesions noted Neuro: Patient oriented x3 Extremities: Normal to inspection Const General: No confusion Orientation/consciousness: No confusion HENMT Head: Yes normocephalic Ears: external ears normal and TM's normal bilaterally Face and sinus: Yes normal facial exam Mouth: moist mucous membranes Throat: Yes tonsils normal Eyes Conjunctivae: conjunctivae normal Pupils: Equal, round and reactive pupils present and Pupil accommodation reflex normal Direct Ophthalmoscopy: normal light reflex Neck Neck: No lymphadenopathy Thyroid: Thyroid normal Chest Chest palpation & inspection: normal inspection of the chest Resp Effort & Inspection: normal respiratory effort and no audible wheezes Auscultation: clear to auscultation bilaterally, no crackles, no wheezes and lung sounds not diminished Cardio Rate: regular rate Rhythm: regular rhythm Peripheral pulses: radial pulses present and dorsalis pedis present GI Palpation (GI): no masses Auscultation: normal bowel sounds and normoactive bowel sounds Rectal Exam - Female: deferred Skin General skin exam: no rashes or lesions noted Rashes: no rashes Neuro General: No confusion Cranial nerves: Yes Equal, round and reactive pupils present and Yes Normal hearing present Cognition (Neuro): normal cognition Gait exam (Neuro): Normal gait present Motor exam (neuro): 5/5 motor strength present throughout Deep tendon reflexes (DTR's): Right brachioradialis reflex intensity grade: 2+, Left brachioradialis reflex intensity grade: 2+, Right patellar reflex intensity grade: 2+ and Left patellar reflex intensity grade: 2+ Extrem General: No edema Coding Level of Care Code Est Pt Prev Care 40-64y([id number]) Diagnoses Annual physical exam Z00.00 Migraine G43.909 Osteoarthritis M19.90 Gastroesophageal reflux disease without esophagitis K21.9 Esophagitis presence: without esophagitis H/O gastric bypass Z98.84 Obesity (BMI 30-39.9) E66.9 Generalized anxiety disorder F41.1 Assessment & Plan Assessment & Plan (1) Annual physical exam: Code(s): Z00.00 - Encounter for general adult medical examination without abnormal findings Category: Medical Plan: Patient is advised to eat healthy, keep well hydrated, keep active and have adequate sleep. (2) Migraine: Code(s): G43.909 - Migraine, unspecified, not intractable, without status migrainosus Category: Medical Plan: Continue with present medication, keep active (3) Osteoarthritis: Comment: Dr. Arreguin knee and hands Code(s): M19.90 - Unspecified osteoarthritis, unspecified site Category: Medical Plan: Continue to keep active, meloxicam for pain to take with food (4) GERD (gastroesophageal reflux disease): Code(s): K21.9 - Gastro-esophageal reflux disease without esophagitis Category: Medical Qualifiers: Esophagitis presence: without esophagitis Qualified Code(s): K21.9 - Gastro-esophageal reflux disease without esophagitis Plan: Avoid the foods that causes that usually spicy foods, tomato products, juices, coffee, soda and foods that your sensitive to. After eating do not lie down, allow 3-4 hours before in lie down. And keep the head of bed above 30 degrees to avoid the acid from going up. (5) H/O gastric bypass: Comment: 12/16/2016 Dr. Murry Code(s): Z98.84 - Bariatric surgery status Category: Surgical Plan: Continue follow-up with bariatric (6) Obesity (BMI 30-39.9): Code(s): E66.9 - Obesity, unspecified Category: Medical Plan: Diet and exercise (7) Generalized anxiety disorder: Comment: seeing Psychiatry counselling monthly Code(s): F41.1 - Generalized anxiety disorder Category: Medical Plan: Continue with counseling and therapy Plan Plan Patient was informed and verbally consented to the use of an ambient scribe for clinic note documentation during this visit. 1. Annual Health Maintenance The patient is up-to-date with her health screenings, including mammogram and colonoscopy. She has received flu, pneumonia, and shingles vaccinations. She was encouraged to continue a healthy lifestyle with adequate hydration, healthy eating, and physical activity. A lab order will be provided for repeat blood work in six months. 2. Elevated Alkaline Phosphatase Recent lab work from April showed a slightly elevated alkaline phosphatase, although other liver function tests were normal. To further evaluate this finding, an ultrasound of the liver will be ordered. The patient will be contacted to schedule the imaging. 3. Generalized Anxiety Disorder The patient will continue Wellbutrin 75 mg, two tablets daily. As her current psychiatry provider is retiring, her prescription for Wellbutrin will be managed here going forward. The patient was instructed to send a message when her next refill is due in November. She will also continue clonidine 0.1 mg as needed for anxiety and continue with counseling and therapy. 4. Knee Pain For pain, the patient will continue taking meloxicam with food. The use of a soft compression knee brace was discussed; while it does not provide structural support, it can help alleviate pain, and the patient may use one if she desires. 5. History Of Gerd And Gastric Bypass The patient will continue to follow up with her bariatrics team for management related to her history of gastric bypass surgery. She currently denies any symptoms of heartburn. Discussion Notes I reviewed the patient's recent clinical history and laboratory results from April. I noted a slightly elevated alkaline phosphatase and discussed the plan to order an abdominal ultrasound to evaluate her liver, clarifying that her other liver function tests were normal and this was not an urgent concern. As her psychiatry provider is retiring, I agreed to take over the management of her Wellbutrin prescription. We discussed her question regarding knee braces for pain, and I explained that while soft compression braces can improve comfort, they do not provide structural support. I reinforced the importance of lifestyle measures including staying active, maintaining adequate hydration, and healthy eating. I advised her to remain cautious due to the current high prevalence of seasonal illnesses. The plan is for a follow-up with repeat labs in about six months. Patient Instructions - Continue to take your current medications as prescribed. - Always take your meloxicam with food to protect your stomach. - We will now be managing your Wellbutrin prescription. Please message us through the patient portal when you need a refill, which you mentioned will be in November. - We are ordering an ultrasound of your abdomen to look at your liver. The imaging department will call you to schedule this appointment. - We have provided you with a prescription for blood work. Please have this done in about six months. - Continue to drink plenty of water (about 6-8 glasses per day), eat a healthy diet, and stay physically active. - For your knee pain, you can try using a soft, [id number] compression brace if you find it makes you more comfortable. - Please contact us if you have any problems or new concerns. Orders: Orders Complete Blood Count Auto Diff 6 Months K21.9 - Gastro-esophageal reflux disease without esophagitis Comprehensive Met. Panel 6 Months K21.9 - Gastro-esophageal reflux disease without esophagitis Free T4 (Free Thyroxine) 6 Months K21.9 - Gastro-esophageal reflux disease without esophagitis US abdomen complete Today R79.89 - Other specified abnormal findings of blood chemistry Lipid Panel 6 Months E78.00 - Pure hypercholesterolemia, unspecified, K21.9 - Gastro-esophageal reflux disease without esophagitis Thyroid Stimulating Hormone 6 Months K21.9 - Gastro-esophageal reflux disease without esophagitis Vitamin B12 and Folate 6 Months K21.9 - Gastro-esophageal reflux disease without esophagitis Vitamin D 25-OH Total 6 Months K21.9 - Gastro-esophageal reflux disease without esophagitis Magnesium 6 Months K21.9 - Gastro-esophageal reflux disease without esophagitis
== END 2025-11-27 14:11 | disposition home or self-care (01) ==
LOC: HO.HMCH 13:41
PROVIDERS: PCP Internal Medicine; Visit Provider Internal Medicine
DX: Z00.00 Encounter for general adult medical examination without abnormal findings (principal); G43.909 Migraine, unspecified, not intractable, without status migrainosus; M19.90 Unspecified osteoarthritis, unspecified site; K21.9 Gastro-esophageal reflux disease without esophagitis; Z98.84 Bariatric surgery status; E66.9 Obesity, unspecified; F41.1 Generalized anxiety disorder